=== PATIENT | female | born 1985 | race Caucasian/White ===

== ENCOUNTER 2019-01-10 10:31 | Emergency (ER) | payer OTHER ==
[2019-01-10 10:40] VITALS: BMI 29.0
[2019-01-10 11:17] VITALS: O2SAT 98
[2019-01-10 11:27] LABS: HCG,QUALITATIVE URINE NEGATIVE (NEGATIVE)
[2019-01-10 11:34] LABS: URINE BACTERIA RARE (<OCC); URINE BILIRUBIN NEGATIVE (NEGATIVE); URINE BLOOD 2+ (NEGATIVE); URINE CLARITY Clear (Clear); URINE GLUCOSE (UA) NORMAL (Normal); URINE LEUKOCYTE ESTERASE NEG Leu/uL (Negative); URINE PROTEIN NEGATIVE (NEGATIVE); URINE UROBILINOGEN NORMAL mg/dL (0.2-1.0)
[2019-01-10 12:02] LABS: URINE COLOR Yellow (YELLOW)
--- NOTE | 2019-01-10 12:17 | RAD ---
HISTORY: breast pain COMPARISON: Chest x-ray portion of obstructive series performed 09/30/17 TECHNIQUE: Chest PA and lateral FINDINGS: Examination limited by habitus. LUNGS: No focal consolidation. Please note that chest x-ray has limited sensitivity for the detection of pulmonary masses. PLEURA: No significant pleural effusion identified. No definite pneumothorax . CARDIOVASCULAR: Heart size appears within normal limits. Atherosclerotic calcification of the aorta. OSSEOUS STRUCTURES: Osseous demineralization. Degenerative changes of the spine. VISUALIZED UPPER ABDOMEN: Unremarkable. OTHER FINDINGS: None. IMPRESSION: No focal consolidation.
[2019-01-10 13:41] VITALS: BP 133/88; PULSE 83; RESP 17; TEMP 98.7
--- NOTE | 2019-01-10 16:08 | C.PDOC ---
History Of Present Illness 33 y/o female with PMH of thyroid disease presents for evaluation of bilateral breast pain for 3 months. Associated with bilateral upper back pain for the same time period. She denies any blunt trauma or fall. 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 Pain in her back worsens with movement. The breast pain is not associated with skin changes, and is not changed by menstruation, but patient states it is sometimes accompanied by equal swelling of the breasts bilaterally. Denies swelling currently. LMP was 01/06/19 and is ongoing. She has not yet seen a doctor for this pain. No prior mammograms. No family hx of breast cancer. Patient denies any breast masses, redness, swelling, nipple discharge, chest pain, SOB, dizziness, abdominal pain, nausea, vomiting, vaginal discharge/odor, SOB, palpitations, dizziness, headache, or urinary complaints. Time Seen by Provider: 01/10/19 11:28 Chief Complaint (Nursing): Breast Problem History Per: Patient History/Exam Limitations: no limitations Onset/Duration Of Symptoms: Days Current Symptoms Are (Timing): Still Present Past Medical History Reviewed: Historical Data, Nursing Documentation, Vital Signs Vital Signs: Last Vital Signs Temp 98.7 F 01/10/19 13:40 Pulse 83 01/10/19 13:40 Resp 17 01/10/19 13:40 BP 133/88 01/10/19 13:40 Pulse Ox 98 01/10/19 13:40 - Medical History PMH: Hyperthyroidism, Hypothyroidism Family History: States: Unknown Family Hx - Social History Hx Tobacco Use: No Hx Alcohol Use: Yes Hx Substance Use: No - Immunization History Hx Tetanus Toxoid Vaccination: No Hx Influenza Vaccination: No Hx Pneumococcal Vaccination: No Review Of Systems Except As Marked, All Systems Reviewed And Found Negative. Constitutional: Positive for: Other (Bilateral breast pain, no nipple discharge or skin changes). Negative for: Fever, Chills Eyes: Negative for: Vision Change ENT: Negative for: Nose Congestion, Throat Pain Cardiovascular: Negative for: Chest Pain, Palpitations, Light Headedness Respiratory: Negative for: Cough, Shortness of Breath Gastrointestinal: Negative for: Nausea, Vomiting, Abdominal Pain, Diarrhea Genitourinary: Negative for: Dysuria, Frequency, Vaginal Discharge, Vaginal Bleeding Musculoskeletal: Positive for: Back Pain (bilateral upper back). Negative for: Neck Pain Skin: Negative for: Rash, Lesions Neurological: Negative for: Weakness, Numbness, Headache, Dizziness Physical Exam - Physical Exam Appears: Well, Non-toxic, No Acute Distress Skin: Warm, Dry, No Rash Head: Atraumatic, Normacephalic Eye(s): bilateral: Normal Inspection, PERRL, EOMI Nose: Normal Oral Mucosa: Moist Throat: Normal Neck: Normal ROM, Trachea Midline, No Midline Cervical Tenderness, Paracervical Tenderness (paracervical tenderness and upper trapezius tenderness bilaterally), No Step Off Deformity, Supple Chest: Symmetrical, Tenderness (Diffuse equal tenderness to bilateral breasts; No discrete masses appreciated; no skin changes, or nipple discharge; No chest wall tenderness), No Ecchymosis Cardiovascular: Rhythm Regular, No Murmur Respiratory: Normal Breath Sounds, No Rales, No Rhonchi, No Wheezing Gastrointestinal/Abdominal: Soft, No Tenderness, No Distention Back: Normal Inspection, No CVA Tenderness, No Vertebral Tenderness, Muscle Spasm (bilaterally upper trapezius) Extremity: Normal ROM, Capillary Refill (<2s) Extremity: Bilateral: Atraumatic, Normal Color And Temperature Pulses: Left Radial: Normal, Right Radial: Normal Neurological/Psych: Oriented x3, Normal Speech, Normal Cranial Nerves, Normal Motor, Normal Sensation Gait: Steady ED Course And Treatment - Laboratory Results Lab Results: Urine Color Yellow (YELLOW) 01/10/19 11:18 Urine Clarity Clear (Clear) 01/10/19 11:18 Urine pH 7.0 (5.0-8.0) 01/10/19 11:18 Ur Specific [place] 1.006 (1.003-1.030) 01/10/19 11:18 Urine Protein Negative mg/dL (NEGATIVE) 01/10/19 11:18 Urine Glucose (UA) Normal mg/dL (Normal) 01/10/19 11:18 Urine Ketones Negative mg/dL (NEGATIVE) 01/10/19 11:18 Urine Blood 2+ (NEGATIVE) H 01/10/19 11:18 Urine Nitrate Negative (NEGATIVE) 01/10/19 11:18 Urine Bilirubin Negative (NEGATIVE) 01/10/19 11:18 Urine Urobilinogen Normal mg/dL (0.2-1.0) 01/10/19 11:18 Ur Leukocyte Esterase Neg Allison/uL (Negative) 01/10/19 11:18 Urine WBC (Auto) < 1 /hpf (0-5) 01/10/19 11:18 Urine RBC (Auto) 1 /hpf (0-3) 01/10/19 11:18 Urine Bacteria Rare (<OCC) 01/10/19 11:18 Urine HCG, Qual Negative (NEGATIVE) 01/10/19 11:18 Urine HCG, Qual Negative (NEGATIVE) 01/10/19 11:18 ECG: Interpreted By Me, Viewed By Me ECG Rhythm: Sinus Rhythm Interpretation Of ECG: Normal intervals, No STEMI Rate From EC (bpm) O2 Sat by Pulse Oximetry: 98 (RA) Pulse Ox Interpretation: Normal - Other Rad CXR X-Ray: Read By Radiologist Interpretation: Accession No. : [id number]. Patient Name / ID : ZACHARY Grubbs / [id number]. Exam Date : 01/10/2019 12:00:05 ( Approved ). Study Comment : Sex / Age : F / 33Y. Creator : alee adamson. Dictator : Isabella Blas MD. Apparatus Engineering Technologist : Heliarc Welder : Isabella Blas MD. Approver2 : Report Date : 01/10/2019 12:07:22. My Comment : . HISTORY: breast pain. COMPARISON: Chest x-ray portion of obstructive series performed 09/30/17. TECHNIQUE: Chest PA and lateral. FINDINGS: Examination limited by habitus. LUNGS: No focal consolidation. Please note that chest x-ray has limited sensitivity for the detection of pulmonary masses. PLEURA: No significant pleural effusion identified. No definite pneumothorax . CARDIOVASCULAR: Heart size appears within normal limits. Atherosclerotic calcification of the aorta. OSSEOUS STRUCTURES: Osseous demineralization. Degenerative changes of the spine. V ISUALIZED UPPER ABDOMEN: Unremarkable. OTHER FINDINGS: None. IMPRESSION: No focal consolidation. Medical Decision Making Medical Decision Making: Impression: Breast pain Initial Plan: - Urinalysis - POC preg - EKG - Chest x-ray - 975 mg PO Tylenol On arrival, patient's blood pressure found to be elevated at 164/121. Patient states she has no history of hypertension that she is aware of, though patient does not see a primary doctor regularly. Patient has no headache, dizziness, visual changes, abdominal pain, chest pain, SOB, neck pain, nausea, v omiting, back pain, numbness, paresthesias, weakness. Repeat BP at bedside is 157/98. Will observe on cardiac rehabilitation specialist and reassess. Educated patient regarding normal CXR and EKG. POC preg negative. UA shows 2+ blood, otherwise unremarkable. Pt currently menstruating On reassessment patient reports complete resolution of pain after taking Tylenol. Repeat vitals show BP improved to 133/88 without medication. Pt states she was originally nervous on triage. Continues to be asymptomatic. Patient will be discharged home with rx for motrin and flexeril. Advised to follow up with the clinic and OBGYN for further evaluation of blood pressure and breast pain. Patient verbalizes understanding and agrees with discharge plan. Used rhinestone setter service to ensure patient understanding. Diagnostic testing results and plan of care discussed with patient. Strict instructions given regarding prescription use, importance of followup, and signs/symptoms to return to ER including chest pain, SOB, vision changes, headache, dizziness, or any other new/worsening symptoms. Pt verbalized understanding of discussion. Patient is A&Ox3, ambulating with steady gait, with vital signs stable for discharge. Disposition Counseled Patient/Family Regarding: Studies Performed, Diagnosis, Need For Followup, Rx Given - Disposition [facility] Disposition: HOME/ ROUTINE Disposition Time: 13:00 Condition: IMPROVED Additional Instructions: Ibuprofeno para el dolor segn sea necesario Flexerilo cada 12 horas para el espasmo muscular segn sea necesario Aumentar los fluidos Seguimiento con clnica de frank para mujeres u OBGYN dentro de 2 hayes Seguimiento con mdico primario en 2 hayes. Regrese a la migue de emergencias con cualquier sntoma nuevo o que empeore Prescriptions: Cyclobenzaprine [Flexeril] 10 mg PO Q12 #10 tab Ibuprofen [Motrin Tab] 600 mg PO Q8 #30 tab Instructions: Common Breast Problems, Mastalgia (DC) Forms: Gen Discharge Inst Tajik, [facility] (Tajik), Work Excuse, [facility] (Kazakh) Print Language: [place] R[place] - POA Present On Arrival: None - Clinical Impression Clinical Impression: Breast pain, Muscle spasm - PA / ACCOUNT CONSULTANT / Resident Statement MD/DO has reviewed & agrees with the documentation as recorded. - Scribe Statement The provider has reviewed the documentation as recorded by the Malikibjairo Waters All medical record entries made by the Malikibjairo were at my direction and personally dictated by me. I have reviewed the chart and agree that the record accurately reflects my personal performance of the history, physical exam, medical decision making, and the department course for this patient. I have also personally directed, reviewed, and agree with the discharge instructions and disposition.
--- NOTE | 2019-01-11 21:54 | CARD ---
APPROVED REPORT Date of service: 01/10/2019 EKG Measurement Heart [id number] <Conclusion> Normal sinus rhythm with sinus arrhythmia Minimal voltage criteria for LVH, may be normal variant Borderline ECG
== END 2019-01-10 13:47 | disposition home or self-care (01) ==
LOC: C.ER 10:31
DX: N64.4 Mastodynia (principal); M62.838 Other muscle spasm